=== PATIENT | male | born 2000 | race African-American/Black ===

== ENCOUNTER 2023-12-01 08:14 | Emergency (ER) | payer OTHER, SELFPAY ==
[2023-12-01 08:22] VITALS: BP 141/91; PULSE 85; O2SAT 96
[2023-12-01 08:24] VITALS: BP 141/91; PULSE 86; RESP 18; TEMP 36.4; O2SAT 97; BMI 37.5
--- NOTE | 2023-12-01 08:28 | DI.RAD.S_ITS ---
PROCEDURE: XR ABDOMEN 1V INDICATIONS: LLQ ABD pain TECHNIQUE: One view of the abdomen acquired. COMPARISON: None. FINDINGS: Surgical changes and devices: None. Bowel: Bowel gas pattern is normal. Soft tissues: No suspicious abdominal calcifications. Visualized solid organ contours appear normal in size. Bones: No suspicious bony lesions. IMPRESSION: No acute abnormality. Dictated by: Presley Ritchie M.D. on 12/01/2023 at 9:00 Approved by: Presley Ritchie M.D. on 12/01/2023 at 9:00
[2023-12-01 08:30] VITALS: BP 147/93; PULSE 85; O2SAT 97
--- NOTE | 2023-12-01 08:32 | ED.GENADULT ---
HPI - General Adult General Chief complaint: Abdominal Pain Stated complaint: ABD Pain Time Seen by Provider: 12/01/23 08:19 Source: patient Mode of arrival: Ambulatory History of Present Illness HPI narrative: Patient is a 23-year-old male who is here for evaluation of left-sided abdominal pain. Patient states that he thinks that it started to hurt after having a large bowel movement this morning. He states that it was somewhat of a constipation type bowel movement. His last bowel movement was 2 days ago. He states he is unsure as to whether or not he would the belly pain prior to the bowel movement. He states ?I just do not pay attention? no urinary symptoms. No testicular pain. A brief episode of nausea that has since resolved but no vomiting. No prior abdominal surgeries. Has back pain but this is baseline for him. Related Data Previous Rx's Medication Instructions Recorded polyethylene glycol 3350 17 17 g PO BID PRN constipation #238 12/01/23 gram/dose oral powder (Miralax) grams trazodone 50 mg tablet 25 mg (1/2 x 50 mg) PO DAILY PRN 12/01/23 insomnia #14 tabs Allergies Allergy/AdvReac Type Severity Reaction Status Date / Time No Known Drug Allergies Allergy Verified 12/01/23 08:23 Review of Systems Review of Systems Narrative: See HPI Patient History Social History Smoking Status: Never smoker Smoking Status: Never smoker alcohol intake frequency: other Substance Use Type: does not use Exam Initial Vital Signs Initial Vital Signs: Vital Signs Pulse Rate 85 12/01/23 08:22 Blood Pressure 141/91 H 12/01/23 08:22 Pulse Oximetry 96 12/01/23 08:22 HENMT Head: normal to inspection and normocephalic Resp Effort & Inspection: normal respiratory effort Cardio Rate: regular rate GI Inspection: normal to inspection and non-distended Palpation: soft, No firm, No guarding and tender (Left-sided abdomen) Back/Spine/Pelvis Back: No CVA tenderness Skin General: no rashes or lesions noted Neuro General: patient alert and patient awake Course Orders Ordered: ED Orders 12/01/23 08:28 XR abdomen 1V Stat Vital Signs Vital signs: Vital Signs - 8 hr 12/01/23 08:22 12/01/23 08:22 12/01/23 08:24 Temperature 97.6 F Pulse Rate 85 86 Respiratory Rate 18 Blood Pressure 141/91 H 141/91 H Pulse Oximetry 96 97 Oxygen Delivery Method Room Air 12/01/23 08:30 12/01/23 08:30 Temperature Pulse Rate 85 Respiratory Rate Blood Pressure 147/93 H Pulse Oximetry 97 Oxygen Delivery Method Medical Decision Making Lab Data Lab results reviewed: Yes I reviewed the patient's lab results. Labs: Urine Dip Bedside Urine Glucose Negative Bedside Urine Bilirubin - Negative Bedside Urine Ketone - Negative Urine Specific [place] 1.030 Bedside Urine Occult Blood - Negative Bedside Urine pH 6.0 Bedside Urine Protein - Negative Bedside Urine Urobilinogen - Negative Bedside Urine Nitrite - Negative Bedside Urine Leukocytes - Negative Esterase Point of care testing: Urine Dip Bedside Urine Glucose Negative Bedside Urine Bilirubin - Negative Bedside Urine Ketone - Negative Urine Specific [place] 1.030 Bedside Urine Occult Blood - Negative Bedside Urine pH 6.0 Bedside Urine Protein - Negative Bedside Urine Urobilinogen - Negative Bedside Urine Nitrite - Negative Bedside Urine Leukocytes - Negative Esterase Imaging Data Abdominal x-ray: Radiologist's Impression: PROCEDURE: XR ABDOMEN 1V INDICATIONS: LLQ ABD pain TECHNIQUE: One view of the abdomen acquired. COMPARISON: None. FINDINGS: Surgical changes and devices: None. Bowel: Bowel gas pattern is normal. Soft tissues: No suspicious abdominal calcifications. Visualized solid organ contours appear normal in size. Bones: No suspicious bony lesions. IMPRESSION: No acute abnormality. MDM Narrative Medical decision making narrative: Patient has a benign abdominal exam. Upon further discussion with the patient he actually did not have a bowel movement this morning he was trying to have a bowel movement when the discomfort started. I suspect that his symptoms are related to constipation. Low suspicion for appendicitis. Low suspicion for renal colic. Will treat symptomatically for now. We also discussed issues that he has been having was sleeping. He is tried Ambien in the past and this was not tolerated well. He is also tried hydroxyzine and melatonin. Bold start him on trazodone. Will have him contact his primary provider for follow-up. Discharge Plan Departure Patient Disposition: Home Clinical Impression: Abdominal pain, Insomnia Instructions: DI for Abdominal Pain-Adult Activity Restrictions/Additional Instructions: I do recommend that you contact your medical department for a follow-up. Take the medications as directed. Return to the emergency department for new or worsening symptoms. Prescriptions: New polyethylene glycol 3350 [Miralax] 17 gram/dose powder 17 g PO BID PRN (Reason: constipation) Qty: 238 0RF trazodone 50 mg tablet 25 mg PO DAILY PRN (Reason: insomnia) Qty: 14 0RF Stand Alone Forms: Patient Portal/API, Work Release Note
[2023-12-01 09:35] VITALS: BP 133/79; PULSE 66; RESP 20; O2SAT 99
== END 2023-12-01 09:44 | disposition home or self-care (01) ==
PROVIDERS: Emergency Provider Emergency Medicine
DX: R10.9 Unspecified abdominal pain (principal); G47.00 Insomnia, unspecified
CPT/HCPCS: 74018; 81003; 99283

== ENCOUNTER 2023-12-03 07:59 | Emergency (ER) | payer OTHER, SELFPAY ==
[2023-12-03] VITALS (10 sets, daily range): BP systolic 129–145; BP diastolic 74–86; PULSE 71–92; RESP 14–17; TEMP 37.1; O2SAT 95–98; BMI 37.0
--- NOTE | 2023-12-03 08:44 | ED_ITS ---
HPI - Abdominal Pain General Chief Complaint: Abdominal Pain Stated Complaint: L abd pain Time Seen by Provider: 12/03/23 08:39 Source: patient, RN notes reviewed and old records reviewed Mode of arrival: Family Vehicle Limitations: no limitations History of Present Illness HPI narrative: 23-year-old male chronic constipation who presents with complaint of abdominal pain was seen here on 12/01/2023. Patient had an x-ray at that time was given a prescription for a laxative as well as trazodone for sleep. Patient states since then he has had 1 bowel movement that was diarrhea like and sort of just liquid. He has not had any additional bowel movements he did throw up once today. He states pain has been persistent little bit increased continues to be on the left side mostly in the left upper quadrant. No fevers or chills reported. Patient states pain has been present for about 2 days has not resolved. He denies any back or flank pain he describes it as left-sided. More in the upper quadrant but some in the lower. Patient states chronically he normally has bowel movements that are hard or pebbly and take a long time to have he will sometimes have pain with bowel movements either in his abdomen or rectum and even a little bit of blood. He states he will spend a long time in the bathroom and has been told by his command that has not normal he should follow-up. Patient had presented 2 days ago for this increased pain. He denies any urinary symptoms. He denies any black or blood in the 1 bowel movement he had. He is not on any prescription medications normally. Did have a PRN prescription for trazodone for insomnia given which was helpful. He has also been taking the MiraLax once daily for the past 2 days. Does not have any other medical history, no prior surgeries. No tobacco, no regular alcohol or recreational drugs. His primary care is through the [facility] Related Data Previous Rx's Medication Instructions Recorded polyethylene glycol 3350 17 17 g PO BID PRN constipation #238 12/01/23 gram/dose oral powder (Miralax) grams trazodone 50 mg tablet 25 mg (1/2 x 50 mg) PO DAILY PRN 12/01/23 insomnia #14 tabs Allergies Allergy/AdvReac Type Severity Reaction Status Date / Time No Known Drug Allergies Allergy Verified 12/03/23 08:35 Review of Systems Review of Systems ROS Unobtainable: All systems reviewed & are unremarkable except as noted in HPI and below Patient History Social History Smoking Status: Never smoker Smoking Status: Never smoker alcohol intake frequency: other Substance Use Type: does not use Exam Narrative Exam Narrative: GENERAL: Alert and oriented x three, male in mild distress. HEENT: Head normocephalic, atraumatic, EOMI, pupils reactive, face symmetric, moist mucous membranes NECK: Supple, full range of motion CARDIOVASCULAR: Regular rate and rhythm without murmurs, rubs or gallops. RESPIRATORY: Breath sounds equal bilaterally, no wheezes rales or rhonchi. ABDOMEN: Soft, patient has left-sided tenderness particularly left upper quadrant but also in the left lower. Normoactive bowel sounds all 4 quadrants. No guarding or rebound, rigidity, no mass : No CVA tenderness bilaterally. EXTREMITIES: Normal range of motion, no clubbing or edema. Neurovascularly intact NEUROLOGICAL: Cranial nerves II through XII grossly intact. Moving all extremities SKIN: Warm, dry, no petechiae, no rashes or lesions. Initial Vital Signs Initial Vital Signs: Vital Signs Temperature 98.8 F 12/03/23 08:10 Pulse Rate 92 H 12/03/23 08:10 Respiratory Rate 17 12/03/23 08:10 Blood Pressure 145/86 H 12/03/23 08:10 Pulse Oximetry 97 12/03/23 08:10 Oxygen Delivery Method Room Air 12/03/23 08:10 Course Orders Ordered: ED Orders 12/03/23 10:26 CT abdomen pelvis w con Stat Discontinued Medications Sodium Chloride (Normal Saline 0.9%) 1,000 mls @ 1,000 mls/hr IV BOLUS ONE Stop: 12/03/23 09:52 Last Infusion: 12/03/23 10:20 Dose: Infused Documented By: Admin: 12/03/23 09:16 Dose: 1,000 mls/hr Documented By: BRYCE Ketorolac Tromethamine (Ketorolac 30 Mg/Ml Vial) 15 mg IV NOW ONE Stop: 12/03/23 08:54 Last Admin: 12/03/23 09:17 Dose: 15 mg Documented By: BRYCE Vital Signs Vital signs: Vital Signs - 8 hr 12/03/23 10:51 12/03/23 10:51 12/03/23 11:00 Pulse Rate 89 Respiratory Rate 16 Blood Pressure 144/82 H 138/75 Pulse Oximetry 98 Oxygen Delivery Method 12/03/23 11:00 12/03/23 11:54 Pulse Rate 76 79 Respiratory Rate 14 Blood Pressure 140/82 Pulse Oximetry 98 97 Oxygen Delivery Method Room Air MDM - Abdominal Pain Lab Data 12/03/23 09:10 12/03/23 09:10 Labs: Lab Results 12/03/23 Range/Units 09:10 WBC 7.7 (4.5-11.0) X10^3/uL RBC 5.30 (4.5-5.9) X10^6/uL Hgb 15.9 (13.5-17.5) g/dL Hct 46.8 (41-53) % MCV 88.3 (80-100) fL MCH 30.1 (26-34) PG MCHC 34.1 (30-36) % RDW 13.8 (11.6-14.8) % Plt Count 212 (150-400) X10^3/uL Neut % (Auto) 63.5 (50-75) % Lymph % (Auto) 27.3 (25-40) % [place] % (Auto) 7.4 (3-14) % Eos % (Auto) 1.2 L (2-4) % Baso % (Auto) 0.6 (0-2) % Neut # (Auto) 4900 (0198-9891) /uL Lymph # (Auto) 2100 (3414-2757) /uL [place] # (Auto) 600 (0-900) /uL Eos # (Auto) 100 (0-450) /uL Baso # (Auto) 0 (0-100) /uL Sodium 139 (137-145) mmol/L Potassium 4.4 (3.4-5.1) mmol/L Chloride 106 (98-107) mmol/L Carbon Dioxide 28 (22-32) mmol/L BUN 16 (9-20) mg/dL Creatinine 1.01 (0.66-1.25) mg/dL Estimated GFR > 60 (>60) mL/min BUN/Creatinine Ratio 15.8 (6-22) Glucose 101 H (70-100) mg/dL Calcium 8.7 (8.4-10.2) mg/dL Total Bilirubin 0.6 (0.2-1.3) mg/dL AST 37 (17-59) IU/L ALT 38 (<50) IU/L Alkaline Phosphatase 57 (38-126) U/L Total Protein 7.4 (6.3-8.2) g/dL Albumin 4.3 (3.5-5.0) g/dL Globulin 3.1 (1.7-4.1) g/dL Albumin/Globulin Ratio 1.4 (1.0-2.8) Lipase 86 (23-300) U/L Point of care testing: Urine Dip Bedside Urine Glucose Negative Bedside Urine Bilirubin - Negative Bedside Urine Ketone - Negative Urine Specific [place] 1.030 Bedside Urine Occult Blood - Negative Bedside Urine pH 6.0 Bedside Urine Protein - Negative Bedside Urine Urobilinogen - Negative Bedside Urine Nitrite - Negative Bedside Urine Leukocytes - Negative Esterase Imaging Data CT scan - abdomen/pelvis: Radiologist's Impression: Dayron Unger??23??M??2000 ? Allergy/Adv: No Known Drug Allergies (More??) Close Abdomen/Pelvis CT (Signed) Hui Banda - 12/03/23 Abdomen X-Ray (Signed) Presley Ritchie - 12/01/23 [facility] [address] CT Scan Report Signed Patient: Dayron Unger MR#: [id number] : 2000 Acct:[id number] Age/Sex: 23 / M Date of Service: 12/03/23 Loc: ED Accession Number: [id number] Procedure: CT abdomen pelvis w con Ordering Provider: Dary Osorio D.O. PROCEDURE: CT ABDOMEN PELVIS W CON INDICATIONS: Lsided abd pain TECHNIQUE: After the administration of intravenous contrast, axial sections acquired from the lung bases to the pubic symphysis. Coronal and sagittal reformats were performed. For radiation dose reduction, the following was used: automated exposure control, adjustment of mA and/or kV according to patient size. COMPARISON: None. FINDINGS: Image quality: Diagnostic. Lower Chest: No significant findings. ABDOMEN: Liver: No solid mass. Mild, diffuse fatty infiltration of the liver. Gallbladder: No radiopaque gallstones or wall thickening. Biliary ducts: No biliary dilation. Pancreas: No ductal dilation. Spleen: Size is within normal limits. Adrenal Glands: No adrenal nodules. Kidneys and Ureters: No hydronephrosis. No solid mass. No complex renal cystic lesion which requires follow up. Stomach and Bowel: Normal colonic caliber, without significant wall thickening. The appendix is normal. Peritoneum: No abnormal intraperitoneal fluid. No free air. Ventral Wall: No significant ventral hernia. Abdominal Nodes: No retroperitoneal or mesenteric adenopathy by size criteria. Vessels: Aorta and inferior vena cava are normal in size. PELVIS: Pelvic Organs: Unremarkable. Bladder: No bladder wall thickening, accounting for underdistention. Pelvic Nodes: No enlarged lymph nodes. Miscellaneous: No inguinal hernias are seen. Bones: No aggressive osseous abnormality. IMPRESSION: No acute disease process. Hepatic steatosis. Dictated by: Hui Banda MD, PhD on 12/03/2023 at 11:10 Approved by: Hui Banda MD, PhD on 12/03/2023 at 11:13 [facility] Narrative Medical decision making narrative: 23-year-old male with 2 days of persistent left-sided abdominal pain, patient has some chronic constipation he was given a MiraLax had 1 liquidy stool but has also thrown up today. He states pain has been persistent and increased a little bit. He is tender on exam. Plan for labs, fluids, urine and CT abdomen pelvis to evaluate for colitis, diverticulitis or other causes of his pain besides constipation. Labs white count of 7.7 hemoglobin of 15 platelets of 212, electrolytes are normal renal function just creatinine of 1.01 glucose of 101 LFTs are negative lipase is 86. Urine CT abdomen/pelvis shows hepatic steatosis, no infectious changes no obstructive changes, patient does have stool in his abdomen on my own evaluation and likely this is likely causing. Patient received fluids and Toradol Discharge Plan Departure Patient Disposition: Home Clinical Impression: Abdominal pain Instructions: DI for Constipation Activity Restrictions/Additional Instructions: Follow up with primary care as needed. Your imaging shows some steatosis or fatty liver, share this information with your primary care physician. You can take Tylenol up to a 1000 mg every 6 hours and/or ibuprofen up to 600 mg every 6 hours as needed for pain. Continue with the MiraLax 1-2 times daily as needed for constipation. Take the MiraLax if you are not having any bowel movements or if you are stools are very hard or pebbly. If you are having liquidy stools or soft well formed stools continue to hydrate and eat high-fiber foods. Please note that the trazodone or medication for insomnia can slow your gut and be more likely to cause constipation. Please return for fevers, rapidly worsening abdominal back or flank pain, persistent vomiting, not having any bowel movement or passing any flatus for 24 hours, black or bloody stools or other new or concerning changes. Prescriptions: No Action polyethylene glycol 3350 [Miralax] 17 gram/dose powder 17 g PO BID PRN (Reason: constipation) Qty: 238 0RF trazodone 50 mg tablet 25 mg PO DAILY PRN (Reason: insomnia) Qty: 14 0RF Stand Alone Forms: Patient Portal/API, Work Release Note
[2023-12-03] MEDS: SODIUM CHLORIDE 0.9% 1,000 ML 1000 ML IV (09:16)
[2023-12-03] MEDS: KETOROLAC 30 MG/ML VIAL 15 MG IV (09:17)
[2023-12-03 09:22] LABS: Add Manual Diff / Slide Review NO; Basophils Absolute Auto 0 /uL (0-100); Basophils Percent Auto 0.6 % (0-2); Eosinophils Absolute Auto 100 /uL (0-450); Eosinophils Percent Auto 1.2 % (2-4); Hematocrit 46.8 % (41-53); Hemoglobin 15.9 g/dL (13.5-17.5); Lymphocytes Absolute Auto 2100 /uL (1100-4500); Lymphocytes Percent Auto 27.3 % (25-40); Mean Corpuscular HGB Conc 34.1 % (30-36); Mean Corpuscular Hemoglobin 30.1 PG (26-34); Mean Corpuscular Volume 88.3 fL (80-100); Monocytes Absolute Auto 600 /uL (0-900); Monocytes Percent Auto 7.4 % (3-14); Neutrophils Absolute Auto 4900 /uL (1500-7000); Neutrophils Percent Auto 63.5 % (50-75); Platelet Count 212 X10^3/uL (150-400); Red Cell Distribution Width 13.8 % (11.6-14.8); White Blood Cell Count 7.7 X10^3/uL (4.5-11.0)
[2023-12-03 09:35] LABS: Alanine Aminotransferase 38 IU/L (<50); Albumin 4.3 g/dL (3.5-5.0); Albumin Globulin Ratio 1.4 (1.0-2.8); Alkaline Phosphatase 57 U/L (38-126); Aspartate Aminotransferase 37 IU/L (17-59); BUN Creatinine Ratio 15.8 (6-22); Bilirubin Total 0.6 mg/dL (0.2-1.3); Blood Urea Nitrogen 16 mg/dL (9-20); Calcium 8.7 mg/dL (8.4-10.2); Carbon Dioxide 28 mmol/L (22-32); Chloride 106 mmol/L (98-107); Estimated Glomerular Filt Rate > 60 mL/min (>60); Globulin 3.1 g/dL (1.7-4.1); Glucose 101 mg/dL (70-100); HEMOLYSIS 51 (0-50); Lipase 86 U/L (23-300); Potassium 4.4 mmol/L (3.4-5.1); Sodium 139 mmol/L (137-145); Total Protein 7.4 g/dL (6.3-8.2)
--- NOTE | 2023-12-03 10:26 | DI.CT.S_ITS ---
PROCEDURE: CT ABDOMEN PELVIS W CON INDICATIONS: Lsided abd pain TECHNIQUE: After the administration of intravenous contrast, axial sections acquired from the lung bases to the pubic symphysis. Coronal and sagittal reformats were performed. For radiation dose reduction, the following was used: automated exposure control, adjustment of mA and/or kV according to patient size. COMPARISON: None. FINDINGS: Image quality: Diagnostic. Lower Chest: No significant findings. ABDOMEN: Liver: No solid mass. Mild, diffuse fatty infiltration of the liver. Gallbladder: No radiopaque gallstones or wall thickening. Biliary ducts: No biliary dilation. Pancreas: No ductal dilation. Spleen: Size is within normal limits. Adrenal Glands: No adrenal nodules. Kidneys and Ureters: No hydronephrosis. No solid mass. No complex renal cystic lesion which requires follow up. Stomach and Bowel: Normal colonic caliber, without significant wall thickening. The appendix is normal. Peritoneum: No abnormal intraperitoneal fluid. No free air. Ventral Wall: No significant ventral hernia. Abdominal Nodes: No retroperitoneal or mesenteric adenopathy by size criteria. Vessels: Aorta and inferior vena cava are normal in size. PELVIS: Pelvic Organs: Unremarkable. Bladder: No bladder wall thickening, accounting for underdistention. Pelvic Nodes: No enlarged lymph nodes. Miscellaneous: No inguinal hernias are seen. Bones: No aggressive osseous abnormality. IMPRESSION: No acute disease process. Hepatic steatosis. Dictated by: Hui Banda MD, PhD on 12/03/2023 at 11:10 Approved by: Hui Banda MD, PhD on 12/03/2023 at 11:13
== END 2023-12-03 11:55 | disposition home or self-care (01) ==
PROVIDERS: Emergency Provider Emergency Medicine
DX: R10.9 Unspecified abdominal pain (principal); K59.00 Constipation, unspecified
CPT/HCPCS: 36415; 74177; 80053; 81003; 83690; 85025; 96361; 96374; 99284; J1885; Q9967